=== PATIENT | male | born 1980 | race Two or more races ===

== ENCOUNTER 2021-07-27 19:59 | Emergency (ER) | payer MEDICAID ==
[~2021-07-27] VITALS: Ht 172.7 cm; Wt 68.0 kg
[2021-07-27] MEDS ORDERED: KETOROLAC 30MG/ML VIAL IM ONE (23:00)
[2021-07-27 23:05] VITALS: BP 117/52
[2021-07-27] MEDS ORDERED: NAPR-1176 MT (23:12)
== END 2021-07-27 23:25 | disposition home or self-care (01) ==
LOC: ER 19:59
DX: M54.9 Dorsalgia, unspecified (principal); Z88.2 Allergy status to sulfonamides; Z90.49 Acquired absence of other specified parts of digestive tract; Z98.890 Other specified postprocedural states
CPT/HCPCS: 96372; 99283; J1885